=== PATIENT | female | born 1950 | race Caucasian/White ===

== ENCOUNTER 2016-10-27 06:19 | Inpatient (IN) | payer MEDICARE ==
[2016-10-27 08:20] VITALS: BP 85/58; PULSE 78; RESP 18; TEMP 97.6; O2SAT 99
[2016-10-27] MEDS ORDERED: MACR100C2 PO (08:57)
[2016-10-27] MEDS ORDERED: CYMB60CA PO (08:57)
[2016-10-27] MEDS ORDERED: PROP20TA3 PO (08:57)
[2016-10-27] MEDS ORDERED: AMBI5TAB PO (08:57)
[2016-10-27] MEDS ORDERED: THYR15 PO (08:57)
[2016-10-27] MEDS ORDERED: NORT75CA PO (08:57)
[2016-10-27] MEDS ORDERED: LYRI100C PO (08:57)
[2016-10-27] MEDS ORDERED: ARMO90TA PO (08:57)
[2016-10-27] MEDS ORDERED: ASPI81CH CHEW (08:59)
[2016-10-27] MEDS ORDERED: VALT500T PO (08:59)
[2016-10-27] MEDS ORDERED: POLY17PO3 (08:59)
[2016-10-27] MEDS ORDERED: MORPHINE SULFATE 4 MG/ML INJ IV PRN (10:00)
[2016-10-27] MEDS ORDERED: DIPHENOXYLATE/ATROPINE 2.5 MG/0.025 MG TAB PO PRN (10:00)
[2016-10-27] MEDS ORDERED: METOCLOPRAMIDE HCL 10 MG/2 ML VIAL IV ONE (11:00)
[2016-10-27] MEDS: SODIUM CHLOR 0.9% 1000 ML INJ 1,000 ML IV SCH ×3 (11:13→21:32)
[2016-10-27] MEDS: DIHYDROERGOTAMINE MESYLATE 1 MG/ML AMP IV PUSH SCH ×3 (11:16→23:08)
[2016-10-27 12:21] VITALS: BP 122/70; PULSE 77; RESP 18; TEMP 96.9; O2SAT 99
[2016-10-27] MEDS ORDERED: VITA100036 PO (14:13)
[2016-10-27] MEDS ORDERED: CALC250T PO (14:13)
--- NOTE | 2016-10-27 15:53 | MB ---
cc: LELAND JANE M.D. DATE OF CONSULTATION: 10/27/2016 HISTORY OF PRESENT ILLNESS The patient is a 65-year-old right-handed woman with a history of essential tremor, depression, headaches, fibromyalgia, neck pain in the past, hypothyroidism, peptic ulcer disease. She has had headache since her mid 30s. Sister and mother had a history of migraines. She has an icepick type headache, it starts in the right frontal region, goes to the back of her head, mostly on the right side, really on the left, at other times a more diffuse throbbing and achy headache. She has a history of fibromyalgia, skin hurts all the time all over her body. No auras of migraine. She has tried Topamax in the past which caused confusion. Cymbalta helped her pain somewhat in the past. Nortriptyline helps her headache sometime in the past sometimes. She never tried Elavil. Depakote seemed to help but worsened her tremors. She has had Botox in the past which has not been helping her headache very much, including with me. She has had a normal BMP, CMP, CBC, LFTs, TSH, T4 in the past. She has seen Dr. Ortiz in the past. PAST MEDICAL HISTORY I have given her Botox in the past which helped her right frontal headache and her whole head but not the stabbing pain behind the right eyeball. Indomethacin helped the stabbing pain but had to stop due to GI upset. She ___ Elavil for me and Depakote. Occipital nerve block did not help. She has a headache now every day and night for the last 7 days. She is ALLERGIC TO NEURONTIN. We have been tapering off her Inderal, we have considered Calan. She has been holding off on her IVIG. Past medical history as above. Also history of a immune deficiency disorder. She takes IVIG every month. She has CVID. ALLERGIES GABAPENTIN, CODEINE, HYDROCODONE, PENICILLAMINE, TRIAMCINOLONE, ZITHROMAX, SOCO, CEFDINIR, CLARITIN, EGGS, NUTS, TAPE. REVIEW OF SYSTEMS In the past, no history of diabetes, hypercholesterolemia, CT, problem with the heart, bypass, atrial fibrillation, kidney, liver, lungs, lupus, cancer, seizure, stroke, no high blood pressure. MEDICATIONS AT HOME 1. She is on thyroid medicine. 2. 81 of aspirin. 3. Dexilant. 4. Lyrica. 5. Nortriptyline 75 mg. 6. Propranolol 40 mg once a day. 7. Ambien. 8. Frova. 9. Valtrex. 10. Duloxetine. 11. Flovent. 12. Macrobid. FAMILY HISTORY Positive for cancer, stroke and seizure. SOCIAL HISTORY Not a smoker. Not a drinker. Lives with her . PHYSICAL EXAMINATION VITAL SIGNS: Blood pressure 85/58, 18, 78 and afebrile. NECK: There were no carotid bruits. HEART: Regular rhythm. I do not detect a murmur. NEURO: Pupils are equal. The right disk is sharp. Visual julien were full. Extraocular movements intact. Face is symmetric. She had normal strength in upper and lower extremities bilaterally. Speech is fluent. She is not aphasic. LABORATORY DATA In the past, she had extensive blood work, MRI of the brain, MRA and MR venogram have been negative. IMPRESSION Migraine headaches. We are going to do IV DHE. We are going to give her some fluids, get her blood pressure a little higher and if that is okay will start it at 02:00 p.m. this afternoon. MD LIZZIE Day/CHICHO /8:35 AM /3:49 PM
[2016-10-27 16:05] VITALS: BP 130/78; PULSE 76; RESP 18; TEMP 97; O2SAT 96
--- NOTE | 2016-10-27 16:56 | HHI.HP ---
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 Admitted directly through her neurologist due to worsening migraine. Patient denied aura, she tried Topamax before which got her confused, Cymbalta nortriptyline is on her med list Depakote as well, per her neurologist not all of them were tried practically. Patient had Botox, which has not helped her headache neither. Currently she feels better, she was given morphine and anti-inflammatory in ED. Denied chest pain, abdominal pain, reported constipation. Patient showed me a long list of allergy and medication list which include Macrobid that she has been taking for a long time prescribed by him urology due to having C VID, thinking it protect her from having UTI. I explained to her that Macrobid can cause side effect especially on the lungs. But she insisted on continue taking it Review of Systems Except as stated in HPI: all other systems reviewed are Neg All systems reviewed and was positive for what is mentioned in history of present illness otherwise negative Past Family Social History Past Medical History As an history of present illness Past Surgical History Right knee replacement and right shoulder repair Allergies: Coded Allergies: Adhesives (Verified Allergy, Severe, RASH, 10/27/16) Gege (Verified Allergy, Severe, Headache, 10/27/16) Cefdinir (Verified Allergy, Severe, RASH, 10/27/16) Claritin (Verified Allergy, Severe, Headache, 10/27/16) Codeine (Verified Allergy, Severe, 10/27/16) Erythromycin (Verified Allergy, Severe, Diarrhea, 10/27/16) Gabapentin (Verified Allergy, Severe, Rash, 10/27/16) Hydrocodone (Verified Allergy, Severe, 10/27/16) Ibuprofen (Verified Allergy, Severe, BLEEDING ULCERS, 10/27/16) Iodine (Verified Allergy, Severe, Rash, 10/27/16) Nasacort (Verified Allergy, Severe, Headache, 10/27/16) Penicillin (Verified Allergy, Severe, SYSTEMIC REACTION, 10/27/16) Zithromax (Verified Allergy, Severe, Diarrhea, 10/27/16) Beef (Verified Allergy, Unknown, 10/27/16) Celery (Verified Allergy, Unknown, 10/27/16) Dairy (Verified Allergy, Unknown, 10/27/16) Egg Allergy (Verified Allergy, Unknown, 10/27/16) Poultry (Verified Allergy, Unknown, 10/27/16) Processed Meats (Verified Allergy, Unknown, 10/27/16) Slater (Verified Allergy, Unknown, 10/27/16) Uncoded Allergies: TAPE (Allergy, Intermediate, 10/27/16) PAPER TAPE OKAY FOR SHORT PERIODS OF TIME Nuts (Allergy, Unknown, 10/27/16) Family History Father of bladder Cancer, mother of Alzheimer's Social History Denied tobacco alcohol or illicit drug abuse Physical Exam Vital Signs Vital Signs Date Time Temp Pulse Resp B/P Pulse Ox O2 Delivery O2 Flow Rate FiO2 10/27/16 16:05 97.0 76 18 130/78 96 10/27/16 12:21 96.9 77 18 122/70 99 10/27/16 08:20 97.6 78 18 85/58 99 Physical Exam GENERAL: This is a well-nourished, well-developed patient, in no apparent distress. SKIN: No rashes, warm and dry HEAD: Atraumatic. Normocephalic. EYES: Pupils equal round and reactive. Extraocular motions intact. No scleral icterus. ENT: Nose without bleeding, or drainage, Airway patent. NECK: Trachea midline. Supple CARDIOVASCULAR: Regular rate and rhythm without murmurs, gallops, or rubs. RESPIRATORY: Fair air entry bilaterally. No wheezes, rales, or rhonchi. GASTROINTESTINAL: Abdomen soft, non-tender, nondistended. Positive bowel sounds MUSCULOSKELETAL: Extremities without clubbing, cyanosis, or edema. Pedal pulses appreciated NEUROLOGICAL: Awake and alert oriented 3, cranial left 2-12 intact, sensation and motor strength intact in upper and lower extremity 5 out of 5, moves all extremity. Normal speech.no focal neurological deficit Assessment and Plan Assessment and Plan 65 years old female with history of fibromyalgia migraine, CVA ID on gammaglobulin infusion came with -Migraine flareup: Started on dihydroergotamine by Dr. Yang, appreciate his help, neuro check, naproxen as needed -History of fibromyalgia: Continue Lyrica, Elavil, Cymbalta -Hypothyroidism: Continue armour -History of CVAD: On IVIG -DVT prophylaxis with SCD and heparin Discussed Condition With Patient on her Physician Certification 2 Midnight Certification Type: Admission for Inpatient Services Order for Inpatient Services The services are ordered in accordance with Medicare regulations or non- Medicare payer requirements, as applicable. In the case of services not specified as inpatient-only, they are appropriately provided as inpatient services in accordance with the 2-midnight benchmark. Estimated LOS (days): 2 days is the estimated time the patient will need to remain in the hospital, assuming treatment plan goals are met and no additional complications. Post-Hospital Plan: Not yet determined Kinsey Haddad MD Oct 27, 2016 16:56
[2016-10-27 20:00] VITALS: BP 134/85; PULSE 72; RESP 20; TEMP 97.6; O2SAT 98
[2016-10-27] MEDS ORDERED: ZOLPIDEM TARTRATE 5 MG TAB PO PRN (20:00)
[2016-10-27] MEDS ORDERED: NORTRIPTYLINE HCL 25 MG CAP PO SCH (21:00)
[2016-10-27] MEDS ORDERED: PROPRANOLOL HCL 20 MG TAB PO SCH (21:00)
[2016-10-27] MEDS: PREGABALIN 100 MG CAP PO SCH (21:32)
[2016-10-27] MEDS: DULoxetine HCl DR 60 MG CAP PO SCH (21:32)
[2016-10-27 21:57] LABS: AUTOMATED NEUTROPHIL # 4.2 TH/MM3 (1.8-7.7); BASOPHIL % 0.4 % (0.0-2.0); EOSINOPHIL % 24.7 % (0.0-4.0); HEMATOCRIT 39.6 % (35.0-46.0); HEMO FLAGS DIFF FINAL; LYMPH % 16.2 % (9.0-44.0); LYMPHOCYTE # 1.3 TH/MM3 (1.0-4.8); MEAN CELL VOLUME 99.6 FL (80.0-100.0); MEAN CORPUSCULAR HGB CONC 34.1 % (32.0-36.0); MONO % 6.9 % (0.0-8.0); NEUT % 51.8 % (16.0-70.0); PLATELET COUNT 201 TH/MM3 (150-450); RED BLOOD COUNT 3.97 MIL/MM3 (4.00-5.30); RED CELL DISTRIBUTION WIDTH 12.8 % (11.6-17.2); WHITE BLOOD COUNT 8.2 TH/MM3 (4.0-11.0)
[2016-10-27 22:00] VITALS: BP 124/79; PULSE 61; RESP 20; TEMP 96.4; O2SAT 98
[2016-10-27] MEDS: DIHYDROERGOTAMINE MESYLATE 1 MG/ML AMP SQ SCH (22:00)
[2016-10-27 22:15] LABS: BICARBONATE 27.4 MEQ/L (21.0-32.0); POTASSIUM 3.7 MEQ/L (3.5-5.1)
[2016-10-27] MEDS: METOCLOPRAMIDE HCL 10 MG/2 ML VIAL IV SCH (23:08)
[2016-10-28] VITALS: BP 124/79; PULSE 61; RESP 20; TEMP 96.4; O2SAT 98
[2016-10-28 04:00] VITALS: BP 96/59; PULSE 75; RESP 20; TEMP 96.9; O2SAT 95
[2016-10-28] MEDS: DIHYDROERGOTAMINE MESYLATE 1 MG/ML AMP SQ SCH ×2 (06:00→14:00)
[2016-10-28] MEDS: DIHYDROERGOTAMINE MESYLATE 1 MG/ML AMP IV PUSH SCH ×2 (06:11→13:59)
[2016-10-28] MEDS: METOCLOPRAMIDE HCL 10 MG/2 ML VIAL IV SCH ×2 (06:11→13:58)
--- NOTE | 2016-10-28 07:32 | HHI.PR ---
Objective Vital Signs Date Time Temp Pulse Resp B/P Pulse Ox O2 Delivery O2 Flow Rate FiO2 10/28/16 04:00 96.9 75 20 96/59 95 10/28/16 00:00 96.4 61 20 124/79 98 10/27/16 20:00 97.6 72 20 134/85 98 10/27/16 16:05 97.0 76 18 130/78 96 10/27/16 12:21 96.9 77 18 122/70 99 10/27/16 08:20 97.6 78 18 85/58 99 I/O 10/27/16 10/27/16 10/27/16 10/28/16 10/28/16 10/28/16 07:00 15:00 23:00 07:00 15:00 23:00 Intake Total 120 ml 1190 ml Balance 120 ml 1190 ml Intake Oral 120 ml 240 ml IV Total 950 ml # Voids 6 1 # Bowel Movements 1 0 Result Diagram: 10/27/16204610/27/162046 Objective Remarks awake alert nl speech Assessment and Plan Assessment and Plan imp no abreu this am will see how does and can dc later today i will fu with nurse needs script for sq dhe on dc Yahir Yang MD Oct 28, 2016 07:32
[2016-10-28 08:00] VITALS: BP 130/65; PULSE 70; RESP 18; TEMP 95.8; O2SAT 97
[2016-10-28 08:32] LABS: AUTOMATED NEUTROPHIL # 3.3 TH/MM3 (1.8-7.7); BASOPHIL % 0.6 % (0.0-2.0); EOSINOPHIL # 1.8 TH/MM3 (0-0.4); EOSINOPHIL % 26.8 % (0.0-4.0); HEMATOCRIT 42.8 % (35.0-46.0); HEMO FLAGS DIFF FINAL; LYMPHOCYTE # 1.1 TH/MM3 (1.0-4.8); MEAN CELL VOLUME 100.3 FL (80.0-100.0); MEAN CORPUSCULAR HEMOGLOBIN 33.6 PG (27.0-34.0); MEAN CORPUSCULAR HGB CONC 33.5 % (32.0-36.0); MONO % 8.2 % (0.0-8.0); NEUT % 48.4 % (16.0-70.0); PLATELET COUNT 176 TH/MM3 (150-450); RED BLOOD COUNT 4.27 MIL/MM3 (4.00-5.30); RED CELL DISTRIBUTION WIDTH 12.6 % (11.6-17.2); WHITE BLOOD COUNT 6.9 TH/MM3 (4.0-11.0)
[2016-10-28 09:00] LABS: POTASSIUM 4.2 MEQ/L (3.5-5.1)
[2016-10-28] MEDS ORDERED: valACYclovir HCL 500 MG TAB PO SCH (09:00)
[2016-10-28] MEDS ORDERED: CALCIUM CARBONATE 500 MG CHEWABLE TAB PO SCH (09:00)
[2016-10-28] MEDS ORDERED: ASPIRIN 81 MG CHEW TAB CHEW SCH (09:00)
[2016-10-28] MEDS ORDERED: THYROID 30 MG TAB PO SCH (09:00)
[2016-10-28] MEDS ORDERED: NITROFURANTOIN MONOHYD MACROCR 100 MG CAP PO SCH (09:00)
[2016-10-28] MEDS ORDERED: THYROID 15 MG TAB PO SCH (09:00)
[2016-10-28] MEDS: DULoxetine HCl DR 60 MG CAP PO SCH (09:28)
[2016-10-28] MEDS: PREGABALIN 100 MG CAP PO SCH (09:29)
[2016-10-28] MEDS: SODIUM CHLOR 0.9% 1000 ML INJ 1,000 ML IV SCH (09:33)
[2016-10-28 12:00] VITALS: BP 109/61; PULSE 73; RESP 18; TEMP 95.7; O2SAT 96
[2016-10-28] MEDS ORDERED: [UNRECOGNIZED DRUG - CODE] SQ ×2 (14:07→14:10)
--- NOTE | 2016-10-28 14:12 | HHI.PR ---
Subjective Remarks patient sitting on a chair, stated her migraine is better she's awaiting on her next does of DHE ergotamine plan to discharge home follow (Dr. Yang later today Objective Vitals Vital Signs Date Time Temp Pulse Resp B/P Pulse Ox O2 Delivery O2 Flow Rate FiO2 10/28/16 12:00 95.7 73 18 109/61 96 10/28/16 10:29 18 10/28/16 08:00 95.8 70 18 130/65 97 10/28/16 04:00 96.9 75 20 96/59 95 10/28/16 00:00 96.4 61 20 124/79 98 10/27/16 20:00 97.6 72 20 134/85 98 10/27/16 16:05 97.0 76 18 130/78 96 I/O 10/27/16 10/27/16 10/27/16 10/28/16 10/28/16 10/28/16 07:00 15:00 23:00 07:00 15:00 23:00 Intake Total 120 ml 1190 ml 867 ml Balance 120 ml 1190 ml 867 ml Intake Oral 120 ml 240 ml IV Total 950 ml 867 ml # Voids 6 1 1 # Bowel Movements 1 0 Result Diagram: 10/28/16 0802 10/28/16 0802 Objective Remarks GENERAL: This is a well-nourished, well-developed patient, in no apparent distress. CARDIOVASCULAR: Regular rate and rhythm without murmurs, gallops, or rubs. RESPIRATORY: Clear to auscultation. Breath sounds equal bilaterally. No wheezes , rales, or rhonchi. GASTROINTESTINAL: Abdomen soft, non-tender, nondistended. Normal active bowel sounds MUSCULOSKELETAL: Extremities without clubbing, cyanosis, or edema. NEURO: Alert & Oriented x4 to person, place, time, situation. Moves all ext x4 A/P Assessment and Plan 65 years old female with history of fibromyalgia migraine, CVA ID on gammaglobulin infusion came with -Migraine flareup: Started on dihydroergotamine by Dr. Yang, appreciate his help, neuro check, naproxen as needed -History of fibromyalgia: Continue Lyrica, Elavil, Cymbalta -Hypothyroidism: Continue armour -History of CVAD: On IVIG -DVT prophylaxis with SCD and heparin Discharge patient to home Condition on discharge: Improved Regular Diet as tolerated Ad Radha activity Rx written: Follow-up with primary care physician in 1 week neurology in 3-5 days Kinsey Haddad MD Oct 28, 2016 14:12
[2016-10-29] MEDS ORDERED: NAPROXEN 500 MG TAB PO PRN (10:00)
== END 2016-10-28 14:38 | disposition home or self-care (01) | DRG 103 ==
LOC: N05A 06:19 → OBSVTOIN 06:46
PROVIDERS: ADMIT Hospitalist; ATTEND Hospitalist
DX: G43.909 Migraine, unspecified, not intractable, without status migrainosus (principal); D84.9 Immunodeficiency, unspecified; F32.9 Major depressive disorder, single episode, unspecified; E03.9 Hypothyroidism, unspecified; M79.7 Fibromyalgia; Z87.11 Personal history of peptic ulcer disease; Z96.651 Presence of right artificial knee joint; Z86.73 Personal history of transient ischemic attack (TIA), and cerebral infarction without residual deficits; G25.0 Essential tremor; M54.2 Cervicalgia
CPT/HCPCS: 80048; 85025; J1110; J2765; J7030